=== PATIENT | female | born 1940 | race Two or more races ===

== ENCOUNTER 2017-08-04 04:48 | Inpatient (IN) | payer OTHER, MEDICAID ==
[~2017-08-04] VITALS: Ht 162.6 cm; Wt 97.1 kg
[2017-08-04 05:31] LABS: Basophils # (auto) 0.1 uL; Eosinophils # (auto) 0.2 uL; Eosinophils % (auto) 3.8 % (0.0-7.0); Hematocrit 30.1 % (36.0-46.0); Hemoglobin 9.7 g/dL (12.2-16.2); Lymphocytes % (auto) 48.8 % (10.0-50.0); Mean Corpuscular Hemoglobin 30.8 pg (28.0-32.0); Mean Corpuscular Hgb Conc. 32.1 g/dL (32.0-36.0); Mean Corpuscular Volume 95.8 fL (80.0-100.0); Monocytes # (auto) 0.5 uL; Monocytes % (auto) 8.4 % (0.0-12.0); Neutrophils # (auto) 2.3 uL; Nucleated Red Blood Cells % 0.2 %; Platelet Count (auto) 274 10^3/uL (140-450); Red Blood Cells 3.14 10^6/uL (4.0-5.20); Red Cell Distribution Width 15.6 % (11.8-14.3); White Blood Cell 6.1 10^3/uL (4.4-10.8)
[2017-08-04 05:45] LABS: INR 1.35 (0.9-1.15); Partial Thromboplastin Time 29.2 sec (22.64-33.71); Prothrombin Time 14.8 sec (9.37-12.3)
[2017-08-04 05:49] LABS: Alanine Aminotransferase 9 U/L (13-56); Albumin 1.8 g/dL (3.4-5.0); Anion Gap 8 (5-15); Aspartate Aminotransferase 16 U/L (15-37); BUN/Creatinine Ratio 7.2; Blood Urea Nitrogen 9 mg/dL (7-18); Calcium 8.2 mg/dL (8.5-10.1); Carbon Dioxide 27 mmol/L (21-32); Chloride 111 mmol/L (98-107); GFR African American 53 mL/min; GFR Non-African American 44 mL/min; Glucose 224 mg/dL (74-106); Magnesium 2.2 mg/dL (1.6-2.6); Potassium 3.8 mmol/L (3.5-5.1); Sodium 146 mmol/L (136-145)
[2017-08-04 05:54] LABS: Alkaline Phosphatase 135 U/L (45-117); Bilirubin, Total 0.4 mg/dL (0.2-1.0); Total Protein 6.1 g/dL (6.4-8.2)
[2017-08-04 06:23] LABS: Lactic Acid w/Reflex 3.9 mmol/L (0.4-2.0)
[2017-08-04 06:42] LABS: Urine Blood 3+ /uL (Negative); Urine Budding Yeast LOADED /hpf (None Seen); Urine Mucus FEW (None Seen); Urine WBC 1114 /hpf (0 - 5); Urine WBC Clumps PRESENT /hpf (None Seen)
[2017-08-04 06:50] LABS: Urine Bacteria MANY /hpf (None Seen)
[2017-08-04] MEDS ORDERED: LEVOFLOXACIN 500MG 100 ML IV ONE (07:15)
[2017-08-04] MEDS ORDERED: SODIUM CHLORIDE 0.9% 1,750 ML IV ONE (07:15)
[2017-08-04] MEDS ORDERED: cefTRIAXone 1GM/50ML D5W 50 ML IV ONE (07:45)
[2017-08-04] MEDS ORDERED: ONDANSETRON HCL 4 MG/2 ML VIAL IV PRN (07:45)
[2017-08-04] MEDS ORDERED: MORPHINE SULFATE 10 MG/ML INJ 1ML SDV IV PRN (07:45)
[2017-08-04] MEDS ORDERED: NITROGLYCERIN 0.4 MG SL TAB SL PRN (07:45)
[2017-08-04] MEDS ORDERED: ACETAMINOPHEN 500 MG TAB PO PRN (07:45)
[2017-08-04] MEDS ORDERED: DILTIAZEM HCL 25 MG/5 ML VIAL IV ONE (07:45)
[2017-08-04] MEDS ORDERED: SODIUM CHLORIDE 0.9% 500 ML IV ONE (07:45)
[2017-08-04 13:45] LABS: Lactic Acid w/Reflex 2.7 mmol/L (0.4-2.0)
[2017-08-04] MEDS ORDERED: WARFARIN SODIUM 2 MG TAB PO ONE (17:00)
[2017-08-04] MEDS: SODIUM CHLORIDE 0.9% 1,000 ML IV SCH (20:42)
[2017-08-04 23:53] VITALS: BP 121/68
[2017-08-05] VITALS (7 sets, daily range): BP systolic 96–133; BP diastolic 53–89
[2017-08-05 05:04] LABS: Basophils # (auto) 0.1 uL; Basophils % (auto) 1.2 % (0.0-2.0); Eosinophils # (auto) 0.1 uL; Eosinophils % (auto) 2.6 % (0.0-7.0); Hematocrit 26.8 % (36.0-46.0); Hemoglobin 8.5 g/dL (12.2-16.2); Lymphocytes # (auto) 1.7 uL; Lymphocytes % (auto) 32.7 % (10.0-50.0); Mean Corpuscular Hemoglobin 31.3 pg (28.0-32.0); Mean Corpuscular Hgb Conc. 31.6 g/dL (32.0-36.0); Mean Corpuscular Volume 98.9 fL (80.0-100.0); Monocytes # (auto) 0.8 uL; Monocytes % (auto) 14.8 % (0.0-12.0); Neutrophils # (auto) 2.5 uL; Neutrophils % (auto) 48.7 % (37.0-80.0); Nucleated Red Blood Cells % 0.1 %; Platelet Count (auto) 206 10^3/uL (140-450); Red Blood Cells 2.71 10^6/uL (4.0-5.20); Red Cell Distribution Width 15.6 % (11.8-14.3); White Blood Cell 5.2 10^3/uL (4.4-10.8)
[2017-08-05 05:17] LABS: INR 1.47 (0.9-1.15); Partial Thromboplastin Time 32.3 sec (22.64-33.71); Prothrombin Time 16.1 sec (9.37-12.3)
[2017-08-05 05:25] LABS: BUN/Creatinine Ratio 7.9; Calcium 7.7 mg/dL (8.5-10.1); Potassium 3.6 mmol/L (3.5-5.1)
[2017-08-05] MEDS: SODIUM CHLORIDE 0.9% 1,000 ML IV SCH (06:19)
[2017-08-05] MEDS: cefTRIAXone 1GM/50ML D5W 50 ML IV SCH (09:12)
[2017-08-05] MEDS ORDERED: ALBUTEROL SULF 2.5 MG/0.5ML(0.5%) NEB SOLN NEB PRN (10:45)
[2017-08-05] MEDS ORDERED: DEXTROSE (50%) 50ML SYRG IV PRN (11:00)
[2017-08-05] MEDS: ACCU-CHEK COMFORT CURVE STRIP VI SCH ×2 (11:36→17:53)
[2017-08-05] MEDS: SOD CHL 0.45% WITH 20MEQ KCL 1,000 ML IV SCH ×2 (11:40→21:35)
[2017-08-05] MEDS: InsuLIN REG 1unit/0.01ml Soln (100units/ml) SC SCH ×2 (11:59→17:53)
[2017-08-05] MEDS ORDERED: DILTIAZEM HCL 120MG ER CAP PO ONE (12:15)
[2017-08-05] MEDS ORDERED: WARF2TAB49 PO (12:33)
[2017-08-05] MEDS ORDERED: ATOR20TA PO (12:33)
[2017-08-05] MEDS ORDERED: DILT120C47 PO (12:33)
[2017-08-05] MEDS ORDERED: WARFARIN SODIUM 1 MG TAB PO ONE (17:00)
[2017-08-05] MEDS: LINEZOLID 600MG/300ML 300 ML IV SCH (21:59)
[2017-08-05] MEDS: ATORVASTATIN 20 MG TAB PO SCH (22:00)
[2017-08-06] VITALS (7 sets, daily range): BP systolic 103–131; BP diastolic 54–73
[2017-08-06 05:38] LABS: Basophils # (auto) 0.1 uL; Basophils % (auto) 1.2 % (0.0-2.0); Eosinophils # (auto) 0.1 uL; Eosinophils % (auto) 2.8 % (0.0-7.0); Hematocrit 24.4 % (36.0-46.0); Hemoglobin 7.7 g/dL (12.2-16.2); Lymphocytes # (auto) 1.9 uL; Lymphocytes % (auto) 36.1 % (10.0-50.0); Mean Corpuscular Hemoglobin 31.1 pg (28.0-32.0); Mean Corpuscular Hgb Conc. 31.7 g/dL (32.0-36.0); Mean Corpuscular Volume 98.3 fL (80.0-100.0); Monocytes # (auto) 0.5 uL; Monocytes % (auto) 9.8 % (0.0-12.0); Neutrophils # (auto) 2.6 uL; Neutrophils % (auto) 50.1 % (37.0-80.0); Nucleated Red Blood Cells % 0.3 %; Platelet Count (auto) 211 10^3/uL (140-450); Red Blood Cells 2.48 10^6/uL (4.0-5.20); Red Cell Distribution Width 15.7 % (11.8-14.3); White Blood Cell 5.2 10^3/uL (4.4-10.8)
[2017-08-06 05:52] LABS: BUN/Creatinine Ratio 6.4; Calcium 7.6 mg/dL (8.5-10.1); Potassium 3.9 mmol/L (3.5-5.1)
[2017-08-06 05:55] LABS: INR 1.6 (0.9-1.15); Partial Thromboplastin Time 34.1 sec (22.64-33.71); Prothrombin Time 17.5 sec (9.37-12.3)
[2017-08-06] MEDS: InsuLIN REG 1unit/0.01ml Soln (100units/ml) SC SCH ×5 (06:00→18:06)
[2017-08-06] MEDS: ACCU-CHEK COMFORT CURVE STRIP VI SCH ×4 (06:11→17:54)
[2017-08-06] MEDS: SOD CHL 0.45% WITH 20MEQ KCL 1,000 ML IV SCH (09:22)
[2017-08-06] MEDS: LINEZOLID 600MG/300ML 300 ML IV SCH ×2 (09:23→22:10)
[2017-08-06] MEDS: cefTRIAXone 1GM/50ML D5W 50 ML IV SCH (09:23)
[2017-08-06] MEDS: DILTIAZEM HCL 120MG ER CAP PO SCH (09:24)
[2017-08-06 15:30] LABS: Basophils # (auto) 0 uL; Basophils % (auto) 0.8 % (0.0-2.0); Eosinophils # (auto) 0.2 uL; Eosinophils % (auto) 3.3 % (0.0-7.0); Hematocrit 24.9 % (36.0-46.0); Hemoglobin 8.1 g/dL (12.2-16.2); Lymphocytes # (auto) 2.1 uL; Lymphocytes % (auto) 35.4 % (10.0-50.0); Mean Corpuscular Hemoglobin 30.7 pg (28.0-32.0); Mean Corpuscular Hgb Conc. 32.6 g/dL (32.0-36.0); Mean Corpuscular Volume 94.2 fL (80.0-100.0); Monocytes # (auto) 0.7 uL; Monocytes % (auto) 11.2 % (0.0-12.0); Neutrophils % (auto) 49.3 % (37.0-80.0); Nucleated Red Blood Cells % 0.3 %; Platelet Count (auto) 204 10^3/uL (140-450); Red Blood Cells 2.64 10^6/uL (4.0-5.20)
[2017-08-06] MEDS ORDERED: WARFARIN SODIUM 1 MG TAB PO ONE (17:00)
[2017-08-06] MEDS: ATORVASTATIN 20 MG TAB PO SCH ×2 (22:00→22:10)
[2017-08-07] MEDS: InsuLIN REG 1unit/0.01ml Soln (100units/ml) SC SCH ×4 (00:30→17:21)
[2017-08-07] MEDS: ACCU-CHEK COMFORT CURVE STRIP VI SCH ×4 (00:30→17:22)
[2017-08-07 05:36] VITALS: BP 117/101
[2017-08-07 06:15] LABS: INR 1.59 (0.9-1.15); Partial Thromboplastin Time 30.5 sec (22.64-33.71); Prothrombin Time 17.4 sec (9.37-12.3)
[2017-08-07] MEDS: SOD CHL 0.45% WITH 20MEQ KCL 1,000 ML IV SCH (06:28)
[2017-08-07 09:00] VITALS: BP 126/74
[2017-08-07] MEDS: DILTIAZEM HCL 120MG ER CAP PO SCH (09:58)
[2017-08-07] MEDS: LINEZOLID 600MG/300ML 300 ML IV SCH ×2 (09:59→22:17)
[2017-08-07] MEDS: cefTRIAXone 1GM/50ML D5W 50 ML IV SCH (09:59)
[2017-08-07 13:00] VITALS: BP 125/80
[2017-08-07] MEDS ORDERED: WARFARIN SODIUM 5 MG TAB PO ONE (17:00)
[2017-08-07 17:46] VITALS: BP 115/71
[2017-08-07] MEDS: Boost Glucose Control 8 Ounces PO SCH (18:00)
[2017-08-07] MEDS: PRO-STAT 64 30ML PO SCH (18:27)
[2017-08-07] MEDS: MULTIPLE VITAMIN TAB PO SCH (18:47)
[2017-08-07 21:47] VITALS: BP 139/69
[2017-08-07] MEDS: ATORVASTATIN 20 MG TAB PO SCH (22:55)
[2017-08-07] MEDS: ASCORBIC ACID 500 MG TAB PO SCH (22:56)
[2017-08-08] MEDS: InsuLIN REG 1unit/0.01ml Soln (100units/ml) SC SCH ×3 (00:40→12:00)
[2017-08-08] MEDS: ACCU-CHEK COMFORT CURVE STRIP VI SCH ×3 (00:44→12:00)
[2017-08-08 05:00] VITALS: BP 143/54
[2017-08-08 07:23] LABS: Eosinophils # (auto) 0.2 uL; Hemoglobin 7.9 g/dL (12.2-16.2); Lymphocytes # (auto) 1.6 uL; White Blood Cell 4.6 10^3/uL (4.4-10.8)
[2017-08-08 07:27] LABS: Basophils # (auto) 0.1 uL; Basophils % (auto) 1.1 % (0.0-2.0); Eosinophils % (auto) 3.8 % (0.0-7.0); Hematocrit 23.6 % (36.0-46.0); Mean Corpuscular Hemoglobin 31.8 pg (28.0-32.0); Mean Corpuscular Hgb Conc. 33.3 g/dL (32.0-36.0); Mean Corpuscular Volume 95.5 fL (80.0-100.0); Monocytes # (auto) 0.6 uL; Monocytes % (auto) 12.6 % (0.0-12.0); Neutrophils # (auto) 2.3 uL; Neutrophils % (auto) 48.5 % (37.0-80.0); Platelet Count (auto) 199 10^3/uL (140-450); Red Blood Cells 2.47 10^6/uL (4.0-5.20); Red Cell Distribution Width 15.6 % (11.8-14.3)
[2017-08-08 07:35] LABS: INR 1.78 (0.9-1.15); Partial Thromboplastin Time 38.7 sec (22.64-33.71); Prothrombin Time 19.5 sec (9.37-12.3)
[2017-08-08 07:50] LABS: BUN/Creatinine Ratio 6.1; Calcium 7.8 mg/dL (8.5-10.1); Potassium 4.6 mmol/L (3.5-5.1)
[2017-08-08] MEDS: Boost Glucose Control 8 Ounces PO SCH (08:21)
[2017-08-08 09:00] VITALS: BP 117/75
[2017-08-08] MEDS: PRO-STAT 64 30ML PO SCH (10:00)
[2017-08-08 10:16] VITALS: BP 117/75
[2017-08-08] MEDS: cefTRIAXone 1GM/50ML D5W 50 ML IV SCH (10:24)
[2017-08-08] MEDS: MULTIPLE VITAMIN TAB PO SCH (10:25)
[2017-08-08] MEDS: DILTIAZEM HCL 120MG ER CAP PO SCH (10:25)
[2017-08-08 10:26] VITALS: BP 117/75
[2017-08-08] MEDS: LINEZOLID 600MG/300ML 300 ML IV SCH (10:26)
[2017-08-08] MEDS: ASCORBIC ACID 500 MG TAB PO SCH (10:26)
[2017-08-08] MEDS ORDERED: SOD CHL 0.45% WITH 20MEQ KCL 1,000 ML IV SCH (10:45)
[2017-08-08 13:00] VITALS: BP 124/71
[2017-08-08] MEDS ORDERED: WARFARIN SODIUM 2 MG TAB PO ONE (17:00)
[2017-08-08 17:16] VITALS: BP 124/50
== END 2017-08-08 17:52 | disposition home or self-care (01) | DRG 871 ==
LOC: ER 04:58 → TELE 04:59 → DOU IN ICU 22:34 → TELE-CENTR 08-06 21:07
PROVIDERS: ADMIT Nurse Practitioner Family; ATTEND Family Medicine
DX: A41.9 Sepsis, unspecified organism (principal); G93.41 Metabolic encephalopathy; E43 Unspecified severe protein-calorie malnutrition; J18.9 Pneumonia, unspecified organism; I48.1 Persistent atrial fibrillation; E11.65 Type 2 diabetes mellitus with hyperglycemia; E87.0 Hyperosmolality and hypernatremia; E87.8 Other disorders of electrolyte and fluid balance, not elsewhere classified; I69.359 Hemiplegia and hemiparesis following cerebral infarction affecting unspecified side; N30.01 Acute cystitis with hematuria; L89.95 Pressure ulcer of unspecified site, unstageable; D63.8 Anemia in other chronic diseases classified elsewhere; I10 Essential (primary) hypertension; E83.51 Hypocalcemia; Z66 Do not resuscitate; Z68.36 Body mass index [BMI] 36.0-36.9, adult
CPT/HCPCS: 36415; 51702; 70450; 71010; 80048; 80053; 81001; 82962; 83036; 83605; 83735; 83880; 84484; 85025; 85610; 85730; 87040; 87081; 87086; 92610; 93005; 96365; 99291; J0696; J1815; J1956